=== PATIENT | male | born 1985 | race Caucasian/White ===

== ENCOUNTER → 2017-04-04 | Emergency (ER) | payer OTHER ==
[~2017-04-04] VITALS: Ht 182.9 cm; Wt 122.5 kg
[~2017-04-04] MED LIST: AVALIDE 300-121 EACH; MUCINEX DM ER1 EAC1 PO; OSEL75CA PO; TESSALON PERLE100 MG PO; ZANTAC300 MG PO
== END | disposition home or self-care (01) ==
LOC: ER 01:24
DX: J11.1 Influenza due to unidentified influenza virus with other respiratory manifestations (principal); E86.0 Dehydration; K29.70 Gastritis, unspecified, without bleeding